=== PATIENT | female | born 1940 | race Caucasian/White ===

== ENCOUNTER → 2017-08-01 | Outpatient (CLI) | payer OTHER ==
[~2017-08-01] MED LIST: LEVSOD100 PO; LISINOPRIL/HCTZ; LOVA20 PO; NAPR500 PO; RANI150 PO
== END ==
LOC: LAB SHORT 15:10
DX: R53.83 Other fatigue (principal)
CPT/HCPCS: 87086

== ENCOUNTER 2024-07-19 08:57 | Day surgery (SDC) | payer OTHER ==
[~2024-07-19] VITALS: Ht 170.2 cm; Wt 99.1 kg
[~2024-07-19 08:57] MED LIST changes: +ASPIR 8181 M1 PO; +Balanced Salt Epinephrine Irrigation Solution 500 mL IR SCH; +LEVOTHYROXINE50 MC9 PO; +Lidocaine HCl/Pf 1% 5 ML VIAL XX SCH; +Lovastatin20 MG PO; +Moxifloxacin HCL 0.5 MG/0.1 ML 0.4MLSYR RIGHTEYE SCH; +OMEP20ER PO; +PHENYLEPHRINE\\TROPICAMIDE\\TETRACAINE OPHTHALMIC DILATING SOLN RIGHTEYE PRN; +Povidone-Iodine 450 DROP/30 ML Solution ONE; +Povidone-Iodine 450 DROP/30 ML Solution RIGHTEYE SCH; +Tetracaine HCl/Pf 0.5% Opth Soln 4 ml ONE; +Triamcinolone Inj Susp 40 MG / ML 1ML Vial INJ SCH; +Triamcinolone Inj Susp 40 MG / ML 1ML Vial ONE; +ZESTORETIC 20-121 EA PO
[2024-07-19] MEDS ORDERED: Diazepam 2 MG Tab ONE (09:14)
--- NOTE | 2024-07-19 09:54 | NUR ---
07/19/24 0954 Jasmin Forman PT REPORTS ANXIETY AT 2/10 PRIOR TO ADMINISTRATION OF 4MG VALIUM PO.
[2024-07-19] MEDS ORDERED: LATA.005SO BOTHEYES (09:59)
[2024-07-19 11:00] VITALS: BP 160/67
== END 2024-07-19 11:17 | disposition home or self-care (01) ==
LOC: ORSCSDS 08:57
PROVIDERS: Ophthalmology
PROC: 08RJ3JZ Replacement of Right Lens with Synthetic Substitute, Percutaneous Approach (ICD-10-PCS; principal; 2024-07-19 10:30)
DX: H25.813 Combined forms of age-related cataract, bilateral (principal); I10 Essential (primary) hypertension; K21.9 Gastro-esophageal reflux disease without esophagitis; Z79.82 Long term (current) use of aspirin; Z79.899 Other long term (current) drug therapy
CPT/HCPCS: A9270; J3301; V2632

== ENCOUNTER 2024-07-26 08:56 | Day surgery (SDC) | payer OTHER ==
[~2024-07-26] VITALS: Ht 170.2 cm; Wt 97.7 kg
[~2024-07-26 08:56] MED LIST changes: +LATA.005SO BOTHEYES; +Moxifloxacin HCL 0.5 MG/0.1 ML 0.4MLSYR LEFTEYE SCH; -Moxifloxacin HCL 0.5 MG/0.1 ML 0.4MLSYR RIGHTEYE SCH; +PHENYLEPHRINE\\TROPICAMIDE\\TETRACAINE OPHTHALMIC DILATING SOLN LEFTEYE PRN; -PHENYLEPHRINE\\TROPICAMIDE\\TETRACAINE OPHTHALMIC DILATING SOLN RIGHTEYE PRN; +Povidone-Iodine 450 DROP/30 ML Solution LEFTEYE SCH; -Povidone-Iodine 450 DROP/30 ML Solution RIGHTEYE SCH
[2024-07-26] MEDS ORDERED: Diazepam 2 MG Tab ONE (09:11)
--- NOTE | 2024-07-26 09:58 | NUR ---
07/26/24 0958 Stephanie Donahue VALIUM 4MG GIVEN AT 0949, 0/10 ANXIETY SCALE. TETRACAINE AT 0951 PLEDGET AT [id number]
[2024-07-26] MEDS ORDERED: Tetracaine HCl 0.5% Opth Soln 15 ml LEFTEYE ONE (10:31)
[2024-07-26 11:04] VITALS: BP 161/66
--- NOTE | 2024-07-26 11:04 | NUR ---
07/26/24 1104 Perla Khoury PT UP TO RECLINER, TRANSFERRED WELL W/ MIN ASSIST. PT DRINKING APPLE JUICE, TOLERATING WELL. DENIES PAIN/NAUSEA. PT HAS RED MARISSA UNDERNEATH L EYE. UPON INSPECTING IT, PT STATES SHE HAS HAD THIS RED MARISSA UNDERNEATH HER L EYE "FOR A LONG TIME." VSS, ON RA. NO VISIBLE SIGNS OF DISTRESS NOTED.
== END 2024-07-26 11:05 | disposition home or self-care (01) ==
LOC: ORSCSDS 08:56
PROVIDERS: Ophthalmology
PROC: 08RK3JZ Replacement of Left Lens with Synthetic Substitute, Percutaneous Approach (ICD-10-PCS; principal; 2024-07-26 10:30)
DX: H25.812 Combined forms of age-related cataract, left eye (principal); Z96.1 Presence of intraocular lens; H40.053 Ocular hypertension, bilateral; I10 Essential (primary) hypertension; K21.9 Gastro-esophageal reflux disease without esophagitis; Z79.82 Long term (current) use of aspirin; Z79.899 Other long term (current) drug therapy
CPT/HCPCS: A9270; J3301; V2632